=== PATIENT | male | born 1970 | race Caucasian/White ===

== ENCOUNTER 2020-04-24 10:37 | Emergency (ER) | payer OTHER, SELFPAY ==
[2020-04-24 11:00] VITALS: BP 132/83; PULSE 70; RESP 18; TEMP 36.8; O2SAT 100
--- NOTE | 2020-04-24 11:01 | ED.PSYCH ---
HPI - Psych General Chief Complaint: Psychiatric Symptoms Stated Complaint: Psych, suicidal Time Seen by Provider: 04/24/20 10:40 Source: patient Mode of arrival: Ambulatory Limitations: no limitations History of Present Illness HPI Narrative: 49-year-old male nonsmoker with history of depression and gout presents with a chief complaint of suicidal ideation with a plan of hanging himself and his parents driveway. He has felt this way, gradually worsening over the past days to weeks. He does have a prior history of a suicide attempt many years ago. He is new to the area and living with his parents and reluctant to discuss his triggers. He denies alcohol or street drugs and does not have access to a firearm. He does not have much in the way of mental health support and is here of his own volition. MD complaint: suicidal ideation and feels depressed Onset (ago): day(s) Duration: constant History of same: Yes Relieving factors: none Exacerbating factors: none Context: significant life stressor Associated psychiatric symptoms: depression Associated symptoms: denies other symptoms Treatments prior to arrival: none If self harm: admits thoughts of self harm and has plan Related Data Allergies Allergy/AdvReac Type Severity Reaction Status Date / Time No Known Drug Allergies Allergy Verified 04/24/20 11:08 Review of Systems Constitutional Constitutional: Denies chills, Denies fatigue, Denies fever(s), Denies frequent falls, Denies lethargy and Denies weakness Eyes Eyes: Denies change in vision, Denies eye discharge, Denies irritation and Denies loss of vision ENT Ears, Nose, Mouth, and Throat: Denies change in voice, Denies dizziness, Denies neck pain, Denies sore throat and Denies throat swelling Cardiovascular Cardiovascular: Denies chest pain, Denies irregular heart rhythm, Denies lightheadedness, Denies palpitations, Denies dyspnea, Denies dyspnea on exertion and Denies orthopnea Respiratory Respiratory: Denies cough, Denies dyspnea, Denies dyspnea on exertion and Denies wheezing Gastrointestinal Gastrointestinal: Denies abdominal pain, Denies change in bowel habits, Denies diarrhea, Denies nausea and Denies vomiting Musculoskeletal Musculoskeletal: Denies neck pain and Denies numbness Integumentary/Breasts Skin/Breast: Denies pruritus, Denies erythema, Denies rash and Denies wounds Neurologic Neurologic: Denies behavioral changes, Denies confusion, Denies dizziness, Denies frequent falls, Denies loss of vision, Denies numbness and Denies weakness Psychiatric Psychiatric: Denies anxiety, Denies behavioral changes, Denies confusion, Reports depression, Reports homicidal ideation and Denies suicidal ideation Endocrine Endocrine: Denies fatigue, Denies flushing and Denies palpitations Hematologic/Lymphatic Hematologic/Lymphatic: Denies easy bruising Allergic/Immunologic Allergic/Immunologic: Denies urticaria, Denies throat swelling and Denies wheezing Patient History Social History Smoking Status: Never smoker Smoking Status: Never smoker alcohol intake frequency: 0-2 drinks per day Substance Use Type: does not use Exam Narrative Exam Narrative: GENERAL: [49] year old patient appears stated age. Well-nourished, well-developed patient, in mild distress. HEAD: Atraumatic. Normocephalic. EYES: Pupils equal round and reactive. Extraocular motions intact. No scleral icterus. No injection or drainage. ENT: Nose without bleeding, purulent drainage. Throat without erythema, tonsillar hypertrophy or exudate. Airway patent. NECK: Trachea midline. Non tender CARDIOVASCULAR: Regular rate and rhythm without murmurs, gallops, or rubs. RESPIRATORY: Clear to auscultation. Breath sounds equal bilaterally. No wheezes, rales, or rhonchi. GASTROINTESTINAL: Abdomen soft, non-tender, nondistended. EXTREMITIES: No edema or joint tenderness. BACK: Nontender without deformity or crepitance. No flank tenderness. NEURO: AOx3. SKIN: No rash or erythema of visible areas Initial Vital Signs Initial Vital Signs: Vital Signs Temperature 98.3 F 04/24/20 11:00 Pulse Rate 70 04/24/20 11:00 Respiratory Rate 18 04/24/20 11:00 Blood Pressure 132/83 04/24/20 11:00 Pulse Oximetry 100 04/24/20 11:00 Course Course Course Narrative: please see LAYUP WORKER and DCR notes for details. Patient is able to contract for safety and has no ongoing thoughts or ideations for suicide. He plans to go stay with his brother in [facility] and work his way back to [place] . Orders Ordered: ED Orders 04/24/20 10:41 Consult to LAYUP WORKER - Tray Service Worker Stat 04/24/20 10:50 Consult to LAYUP WORKER - Tray Service Worker Urgent EKG-12 Lead Stat 04/24/20 11:07 Complete Blood Count AUTO DIFF Stat Comprehensive Metabolic Panel Stat Ethanol (ETOH) Stat Thyroid Stimulating Hormone Stat 04/24/20 13:10 Urine Drug Screen, Rapid Stat Vital Signs Vital signs: Vital Signs - 8 hr 04/24/20 11:00 04/24/20 14:26 04/24/20 16:49 Temperature 98.3 F 97.9 F 98.0 F Pulse Rate 70 101 H 60 Respiratory Rate 18 16 16 Blood Pressure 132/83 136/78 130/87 Pulse Oximetry 100 99 MDM - Psych Lab Data Result diagrams: 04/24/20 11:07 04/24/20 11:07 Labs: Lab Results 04/24/20 04/24/20 04/24/20 Range/Units 11:07 11:07 11:07 WBC 4.2 L (4.5-11.0) X10^3/uL RBC 4.84 (4.5-5.9) X10^6/uL Hgb 15.0 (13.5-17.5) g/dL Hct 43.8 (41-53) % MCV 90.6 (80-100) fL MCH 31.0 (26-34) PG MCHC 34.2 (30-36) % RDW 13.8 (11.6-14.8) % Plt Count 163 (150-400) X10^3/uL Neut % (Auto) 55.3 (50-75) % Lymph % (Auto) 26.3 (25-40) % [place] % (Auto) 13.3 (3-14) % Eos % (Auto) 4.1 H (2-4) % Baso % (Auto) 1.0 (0-2) % Neut # (Auto) 2300 (3126-1285) /uL Lymph # (Auto) 1100 (7031-3880) /uL [place] # (Auto) 600 (0-900) /uL Eos # (Auto) 200 (0-450) /uL Baso # (Auto) 0 (0-100) /uL Sodium 140 (137-145) mmol/L Potassium 4.4 (3.4-5.1) mmol/L Chloride 102 (98-107) mmol/L Carbon Dioxide 31 (22-32) mmol/L BUN 16 (9-20) mg/dL Creatinine 1.19 (0.66-1.25) mg/dL Estimated GFR > 60.0 (>60) mL/min BUN/Creatinine Ratio 13.4 (6-22) Glucose 90 (70-100) mg/dL Calcium 9.9 (8.4-10.2) mg/dL Total Bilirubin 0.9 (0.2-1.3) mg/dL AST 38 (17-59) IU/L ALT 73 H (<50) IU/L Alkaline Phosphatase 105 (38-126) U/L Total Protein 7.6 (6.3-8.2) g/dL Albumin 4.3 (3.5-5.0) g/dL Globulin 3.3 (1.7-4.1) g/dL Albumin/Globulin Ratio 1.3 (1.0-2.8) TSH 1.33 (0.47-4.68) uIU/mL U Opiates 300ng/mL cut (Negative) Ur Oxycodone Screen (Negative) Urine Methadone Screen (Negative) Ur Barbiturates Screen (Negative) U Tricyclic Antidepress (Negative) Ur Phencyclidine Scrn (Negative) Ur Amphetamines Screen (Negative) U Methamphetamines Scrn (Negative) Ur MDMA Scrn (Ecstasy) (Negative) U Benzodiazepines Scrn (Negative) Urine Cocaine Screen (Negative) U Marijuana (THC) Screen (Negative) Ethyl Alcohol < 10 ( - 10) mg/dL 04/24/20 Range/Units 13:10 WBC (4.5-11.0) X10^3/uL RBC (4.5-5.9) X10^6/uL Hgb (13.5-17.5) g/dL Hct (41-53) % MCV (80-100) fL MCH (26-34) PG MCHC (30-36) % RDW (11.6-14.8) % Plt Count (150-400) X10^3/uL Neut % (Auto) (50-75) % Lymph % (Auto) (25-40) % [place] % (Auto) (3-14) % Eos % (Auto) (2-4) % Baso % (Auto) (0-2) % Neut # (Auto) (1121-8505) /uL Lymph # (Auto) (5481-9061) /uL [place] # (Auto) (0-900) /uL Eos # (Auto) (0-450) /uL Baso # (Auto) (0-100) /uL Sodium (137-145) mmol/L Potassium (3.4-5.1) mmol/L Chloride (98-107) mmol/L Carbon Dioxide (22-32) mmol/L BUN (9-20) mg/dL Creatinine (0.66-1.25) mg/dL Estimated GFR (>60) mL/min BUN/Creatinine Ratio (6-22) Glucose (70-100) mg/dL Calcium (8.4-10.2) mg/dL Total Bilirubin (0.2-1.3) mg/dL AST (17-59) IU/L ALT (<50) IU/L Alkaline Phosphatase (38-126) U/L Total Protein (6.3-8.2) g/dL Albumin (3.5-5.0) g/dL Globulin (1.7-4.1) g/dL Albumin/Globulin Ratio (1.0-2.8) TSH (0.47-4.68) uIU/mL U Opiates 300ng/mL cut Negative (Negative) Ur Oxycodone Screen Negative (Negative) Urine Methadone Screen Negative (Negative) Ur Barbiturates Screen Negative (Negative) U Tricyclic Antidepress Negative (Negative) Ur Phencyclidine Scrn Negative (Negative) Ur Amphetamines Screen Negative (Negative) U Methamphetamines Scrn Negative (Negative) Ur MDMA Scrn (Ecstasy) Negative (Negative) U Benzodiazepines Scrn Negative (Negative) Urine Cocaine Screen Negative (Negative) U Marijuana (THC) Screen Negative (Negative) Ethyl Alcohol ( - 10) mg/dL Urine Dip Bedside Urine Glucose Negative Bedside Urine Bilirubin - Negative Bedside Urine Ketone - Negative Urine Specific [place] 1.010 Bedside Urine Occult Blood - Negative Bedside Urine pH 6.0 Bedside Urine Protein - Negative Bedside Urine Urobilinogen - Negative Bedside Urine Nitrite - Negative Bedside Urine Leukocytes - Negative Esterase Discharge Plan Departure Patient Disposition: Home Clinical Impression: Suicidal ideation Depression Qualifiers: Depression Type: unspecified Qualified Code(s): F32.9 - Major depressive disorder, single episode, unspecified Discharge Date/Time: 04/24/20 16:56 Instructions: DI for Suicidal Ideation-Adult Activity Restrictions/Additional Instructions: *You have been diagnosed with [depression with suicidal ideation] *What to do: * continue to take medications as directed *Please consider reaching out to the crisis line listed below for help establishing with local mental health providers if you decide to stay in town. *you may text help to [phone] on your phone to reach a mental health worker if you begin to escalate, or you may navigate your web browser to [email or web address] *Return to ER if you should have any new, worsening or concerning symptoms Referrals: [facility] [Outside]
[2020-04-24 11:15] LABS: Add Manual Diff / Slide Review NO; Basophils Absolute Auto 0 /uL (0-100); Eosinophils Absolute Auto 200 /uL (0-450); Eosinophils Percent Auto 4.1 % (2-4); Hematocrit 43.8 % (41-53); Lymphocytes Absolute Auto 1100 /uL (1100-4500); Lymphocytes Percent Auto 26.3 % (25-40); Mean Corpuscular HGB Conc 34.2 % (30-36); Mean Corpuscular Volume 90.6 fL (80-100); Monocytes Absolute Auto 600 /uL (0-900); Monocytes Percent Auto 13.3 % (3-14); Neutrophils Absolute Auto 2300 /uL (1500-7000); Neutrophils Percent Auto 55.3 % (50-75); Platelet Count 163 X10^3/uL (150-400); Red Blood Cell Count 4.84 X10^6/uL (4.5-5.9); Red Cell Distribution Width 13.8 % (11.6-14.8); White Blood Cell Count 4.2 X10^3/uL (4.5-11.0)
[2020-04-24 11:29] LABS: Alanine Aminotransferase 73 IU/L (<50); Albumin 4.3 g/dL (3.5-5.0); Albumin Globulin Ratio 1.3 (1.0-2.8); Alkaline Phosphatase 105 U/L (38-126); Aspartate Aminotransferase 38 IU/L (17-59); BUN Creatinine Ratio 13.4 (6-22); Bilirubin Total 0.9 mg/dL (0.2-1.3); Blood Urea Nitrogen 16 mg/dL (9-20); Calcium 9.9 mg/dL (8.4-10.2); Carbon Dioxide 31 mmol/L (22-32); Chloride 102 mmol/L (98-107); Estimated Glomerular Filt Rate > 60.0 mL/min (>60); Ethanol (ETOH) < 10 mg/dL; Globulin 3.3 g/dL (1.7-4.1); Glucose 90 mg/dL (70-100); HEMOLYSIS < 15 (0-50); Potassium 4.4 mmol/L (3.4-5.1); Sodium 140 mmol/L (137-145); Total Protein 7.6 g/dL (6.3-8.2)
[2020-04-24 13:20] LABS: Thyroid Stimulating Hormone 1.33 uIU/mL (0.47-4.68)
[2020-04-24 13:28] LABS: UR Morphine/Opiate cutoff 300 Negative (Negative); Ur Creatinine Normal (Normal); Ur Specific Gravity Normal (Normal); Urine Amphetamines Negative (Negative); Urine Barbiturates Negative (Negative); Urine Benzodiazepines Negative (Negative); Urine Cocaine Negative (Negative); Urine MDMA Negative (Negative); Urine Methadone Negative (Negative); Urine Methamphetamines Negative (Negative); Urine Oxycodone Negative (Negative); Urine Phencyclidine Negative (Negative); Urine Tetrahydrocannabinol Negative (Negative); Urine Tricyclic Antidepressant Negative (Negative); Urine pH Normal (Normal)
--- NOTE | 2020-04-24 13:34 | CM.SWNOTE ---
BOOK RETAILER Assessment BOOK RETAILER - Recoating Machine Operator Assessment BOOK RETAILER - Recoating Machine Operator Assessment Start: 04/24/20 12:56 Freq: Status: Active Protocol: Document 04/24/20 12:56 IVETH (Rec: 04/24/20 13:33 IVETH [id number]) BOOK RETAILER/Recoating Machine Operator Assessment Time Spent with Patient Start date 04/24/20 Visit Start Time 12:20 End date 04/24/20 Visit End Time 12:50 Total time Care Management spent on 30 patient visit-in minutes Mental Health Screening Include Onset, Duration, Intensity Presenting Problem Patient presents to ED today with stated complaint of depression and suicidality. Patient reports that his mother called the police, who drove him to ED today because I was feeling suicidal. Patient checked in to ED voluntarily. Patient reports he has been experiencing depression, decreased energy, and low motivation for roughly 3 weeks. 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 Patient has been planning to move from [place] to [place] to live on a sailboat for roughly 5 years, drove up to [place] roughly 3 days prior, and found his plan to be unfeasible/unobtainable. Patient has experienced periods of depression and suicide ideation throughout his life, and had previously planned to hang himself in his parents driveway. 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 Patient Strengths Patient has experienced several significant challenges in his life, and has shown endurance and resiliency. 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 Current Behavioral Health Provider(s) None. [facility] used [facility] Provider, Ph[facility] in the past, but states he finds them difficult to access due to overcrowding . Psych. Hx Mental Health and Chemical Patient states he has Dependency experienced periods of depression and feeling suicidal previously, and describes the experience as cyclic. Patient reported previously struggling with alcohol use, but has been sober for 12 years. Patient reports no other substance use. Family Hx of Behavioral Abuse None. Psychiatric Hospitalizations (date(s)/ None. location) Psychosocial information & Support Patient is 49 y/o male who Systems recently moved from [place] to [place] to try to pursue a dream of living on a sailboat. When he arrived, patient reports that he found this to be unobtainable. Patient is a and served in [place]. Patient states he has been through two divorces and was living in his parents basement in [place] prior to coming to [place]. Patient reports his mother is supportive, but that she will often give him phone numbers of places to call rather than engaging in conversation with patient. Patient states he does not have friends and that he is a isolated person . Patient has been staying with his brother in [place] the past few nights, but states that he does not want to discuss these things with his brother. 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 Legal Concerns Legal Matters - Outstanding Issues None reported. Mental Status Orientation (Person/Place/Time) Oriented x3 Stated Mood every day is [place] [ stated with sarcastic tonality ] Affect (Congruent with Mood?) Dysphoric, slightly labile, congruent with mood Thought Content - Specify/Describe No obsessions, hallucinations Obsessions, Delusions, Hallucinations or delusions observed during visit. Patient reports he's wondered if he is mildly schizophrenic in the past due to hearing voices but states that when he thinks about it, he believes these voices are himself and that it is self talk. Patient denies feeling any control by the voices and that the voices are not instructing him to cause any harm. Thought Processes (Cxmwbht-Pcowvvhp-Ovzk Guarded, coherent. Patient's Rjfsfloe-Rawydnhy-Ynymajklky- language is vague and general Oivhldymayhfzi-Pjcqnkz-Odxuwgwifpdx- unless focused to a specific Thought Blocking) question. Speech (Kggfxk-Ubbr-Mktadtw-Rapid-Soft- Soft Loud-Pressured) Motor (Uiskwc-Ydhlqvwhe-Llpw-Other) Normal Insight (Bgwa-Gsaf-Grys/Limited) Fair Judgement (Awcy-Pbuq-Qmot/Limited) Fair to poor Impulse Control (Adequate-Impaired) Adquate Memory (Vdcidltxz-Ioffeh-Stvezu, Intact x3 Impaired-Intact) Concentration (Intact-Impaired) Intact Attention (Intact-Impaired) Intact Behavior (Appropriate-Inappropriate) Appropriate Risk Assessment Suicidal Ideation (Plan) Yes Homicidal Ideation (Plan) No Comment Patient denies SI. Patient states he woke up feeling suicidal this morning after experiencing depression for 3 weeks. Patient reports he had felt this way one month prior, and planned to hang himself in his parents garage. Patient reports he is not currently feeling suicidal, and that he just wants to return home to [place]. When asked if patient has guns or tools in the context of means for suicide, patient reports that he does not have guns, but does have $1200-$1400 worth of tools in my truck. Intervention Intervention BOOK RETAILER meets with patient. Patient reports feeling depressed for roughly 3 weeks , and informs BOOK RETAILER that he woke up this morning feeling suicidal. Patient reports that his mother called law enforcement and reported that patient was feeling suicidal, and that law enforcement drove him to ED. Patient checked in voluntarily. Patient acknowledges feeling suicidal in the morning, but denies feeling suicidal in ED. Patient reports that he would like to return home to [place], and is concerned about the financial implications of today's ED visit, and states that he does not know if he will be allowed to work as a electrical journeyman anymore due to having an ED visit for suicidal thoughts. Patient does not have health insurance, PCP, and does not see a counselor. Patient reports he has trouble accessing [facility] services in his home state of [place]. Though patient denies suicidality and articulates a desire to return to [place] and move on, this BOOK RETAILER has concerns for suicide due to social isolation, recent suicidal thoughts with plan, police intervention on suicidality this AM, history of depression, multiple recent life triggers, and lack of medical and behavioral health support. BOOK RETAILER consults with Dr. Sharp and discusses concerns . BOOK RETAILER will contact DCR for consult. Plan RA Plan BOOK RETAILER will contact [facility] and request [facility]CR consult to further evaluate patient's risk for suicidality. VINICIO Ramon
--- NOTE | 2020-04-24 14:00 | CM.SWNOTE ---
ASPHALT DISTRIBUTOR TENDER note Following assessment and staffing with Dr. Sharp, ASPHALT DISTRIBUTOR TENDER contacts [facility]/ [facility] dispatch and speaks to Madelyn. ASPHALT DISTRIBUTOR TENDER reviews information from assessment with patient and discusses concerns for suicide completion. Madelyn indicates that this does constitute a DCR dispatch and requests attestation form. ASPHALT DISTRIBUTOR TENDER obtains signature from Dr. Sharp on attestation form and faxes attestation form to [facility]. ASPHALT DISTRIBUTOR TENDER faxes clinicals for patient to [facility] DCR fax. Pl: ASPHALT DISTRIBUTOR TENDER will wait for f/u from DCR regarding patient. VINICIO Ramon
[2020-04-24 14:26] VITALS: BP 136/78; PULSE 101; RESP 16; TEMP 36.6
--- NOTE | 2020-04-24 16:31 | PC.NURSE ---
dcr at bedside with pt for eval
--- NOTE | 2020-04-24 16:47 | CM.SWNOTE ---
BUDGET AND POLICY ANALYST note DCR Vanessa meets with patient. Following meeting, Vanessa informs BUDGET AND POLICY ANALYST that he feels patient is safe for d/c, and plans to stay with his brother and return to [place]. VINICIO Ramon
[2020-04-24 16:49] VITALS: BP 130/87; PULSE 60; RESP 16; TEMP 36.7; O2SAT 99
== END 2020-04-24 16:56 | disposition home or self-care (01) ==
PROVIDERS: Emergency Provider Emergency Medicine
DX: R45.851 Suicidal ideations (principal); F32.9 Major depressive disorder, single episode, unspecified
CPT/HCPCS: 36415; 80053; 80305; 80320; 81003; 84443; 85025; 93005; 99284